=== PATIENT | female | born 1990 | race Caucasian/White ===

== ENCOUNTER 2023-10-22 08:57 | Outpatient (CLI) | payer OTHER, SELFPAY | END 2023-10-22 08:58 | disposition home or self-care (01) | PROVIDERS: PCP Physician Assistant; Visit Provider Physician Assistant | DX: M25.561 Pain in right knee (principal); M25.562 Pain in left knee | CPT/HCPCS: 73564 ==

== ENCOUNTER 2024-07-27 10:29 | Emergency (ER) | payer OTHER, SELFPAY ==
[2024-07-27 10:35] VITALS: BP 120/85; PULSE 111; RESP 12; TEMP 36.8; O2SAT 100
[2024-07-27 11:08] LABS: EDCOVIDSCREEN Negative (Negative); EDINFLUASCREEN Negative (Negative); EDINFLUBSCREEN Negative (Negative); EDSTREPNEGPOS1 Negative (Negative)
--- NOTE | 2024-07-27 11:08 | ED.URI ---
HPI - URI/Sore Throat General Chief Complaint: Upper Respiratory Infection Stated Complaint: Sore Throat Source: patient Mode of arrival: ambulatory Limitations: no limitations History of Present Illness HPI Narrative: Patient is a 34 year old female who presents to the clinic for complaints of a sore throat for 2 days. She has been taking Ibuprofen over the counter with minimal relief. She has not been around anyone who has been sick. Denies any fevers, shortness of breath, difficulty swallowing, vomiting, or diarrhea. Related Data Allergies Allergy/AdvReac Type Severity Reaction Status Date / Time No Known Allergies Allergy Unverified 07/27/24 10:32 Review of Systems Review of Systems: CONSTITUTIONAL: Denies body aches, fever, chills, or sweats. EYES: Denies visual changes, redness, or discharge. ENT: Reports sore throat. Denies rhinorrhea, congestion, or otalgia. CARDIOVASCULAR: Denies chest pain, palpitations, or edema. RESPIRATORY: Denies dyspnea. GASTROINTESTINAL: Denies abdominal pain, nausea, vomiting, or diarrhea. SKIN: Denies rash NEUROLOGIC: Denies headache All systems reviewed & are unremarkable except as noted in HPI and below PMFSH Comments At time of signature, I have reviewed and agree with nursing past medical, surgical, social and family history unless otherwise noted. Please see nursing chart for further information. There is no relevant family history pertinent to the presenting complaint. Exam Narrative: GENERAL: Ill-appearing, ?no acute distress. EYES: ?conjunctivae clear ENT: Mucous membranes moist. TM pearly mora with normal light reflex bilaterally; no tragal tenderness. Oropharynx erythematous without lesions. Tonsils enlarged 2+ and without exudate. No drooling, no hoarseness, no trismus, uvula midline. No tripod positioning, hot potato voice, or soft palate swelling. NECK: Supple. Lymphadenopathy to submandibular. CHEST: Clear to auscultation, breath sounds equal. ?No respiratory distress, speaks in full sentences. HEART: Regular rate and rhythm. No murmur heard. SKIN: Warm, dry, no rash. NEURO: Alert and oriented x3.? Course Course Level of Care: Express Care Visit Vital Signs Vital signs: Vital Signs Temperature 98.3 F 07/27/24 10:35 Pulse Rate 111 H 07/27/24 10:35 Respiratory Rate 12 07/27/24 10:35 Blood Pressure 120/85 06/19/25 10:35 Pulse Oximetry 100 07/27/24 10:35 Temperature 98.3 F 07/27/24 10:35 Pulse Rate 111 H 07/27/24 10:35 Respiratory Rate 12 07/27/24 10:35 Blood Pressure 120/85 07/27/24 10:35 Pulse Oximetry 100 07/27/24 10:35 Reviewed. MDM - URI/Sore Throat MDM Narrative Medical decision making narrative: Discussed physical exam findings. Prednisone prescription given. Advised supportive measures and signs/symptoms to go to the ER. Pt is appropriate for outpatient treatment and follow up. Differential Diagnosis Differential diagnosis: Likely upper respiratory infection, viral infection, pharyngitis and other (strep throat, flu, covid) Lab Data Attestation: I reviewed the patient's lab results. Critical Care Time Critical Care Time Critical Care Time: No Discharge Plan Discharge Clinical Impression: Lymph node enlargement Pharyngitis Qualifiers: Pharyngitis/tonsillitis etiology: unspecified etiology Qualified Code(s): J02.9 - Acute pharyngitis, unspecified Patient Disposition: Home Condition: Stable Instructions: Pharyngitis (ED) Additional Instructions: Take steroid as prescribed. Recommend Flonase spray and Zyrtec (or Claritin/Rosita) Tylenol 1000mg every 8 hours as needed for pain Symptomatic treatment includes: rest, fluids, and increase humidity of the air at home. Follow up with your primary care provider in 1 week. Go to the ER for worsening symptoms or concerns. Patient Language: Austrian Prescriptions: New prednisone 20 mg tablet See Rx Instructions .ROUTE .COMPLEX Qty: 8 0RF Rx Instructions: Take 2 tabs for 3 days Daily, then take 1 tab for 2 days Daily. fluticasone propionate [Flonase Allergy Relief] 50 mcg/actuation spray,suspension 1 spray intranasal BID Qty: 16 0RF Rx Instructions: administer into each nostril Follow-up/Referrals: Avery,LIYA Young [Primary Care Provider] - Time of Disposition: 11:12
== END 2024-07-27 11:15 | disposition home or self-care (01) ==
PROVIDERS: Nurse Practitioner Family; PCP Physician Assistant
DX: R59.0 Localized enlarged lymph nodes (principal); J02.9 Acute pharyngitis, unspecified; Z20.822 Contact with and (suspected) exposure to COVID-19
CPT/HCPCS: 87081; 87426; 87804; 87880; 99203; G0463